=== PATIENT | male | born 1980 | race Caucasian/White ===

== ENCOUNTER 2018-05-01 11:11 | Observation (INO) ==
--- NOTE | 2018-04-30 12:52 | EKG Report ---
Test Performed on : 04/30/2018 12:39:25 PM Test Reason : pat Blood Pressure : / mmHG Vent. Rate : 068 BPM Atrial Rate : 068 BPM P-R Int : 134 ms QRS Dur : 098 ms QT Int : 376 ms P-R-T Axes : 054 111 028 degrees QTc Int : 399 ms Normal sinus rhythm. Left posterior fascicular block Cannot rule out Anterior infarct , age undetermined Abnormal ECG No previous ECGs available Confirmed by Jennifer BRAVO, Hardeep Garvin ([id number]) on 04/30/2018 6:29:45 PM
[2018-04-30 13:48] LABS: HEMATOCRIT 47.9 % (42.0-52.0); HEMOGLOBIN 15.9 g/dL (14.0-18.0); MCH 27.5 PG (27-31); MCHC 33.2 g/dL (33-37); MCV 82.9 FL (81-99); MPV 10.2 FL (7.4-10.4); RBC 5.78 XMIL (4.7-6.1); RDW 13.4 % (11.5-14.5); WBC 6.55 X1000 (4.8-10.8)
[2018-04-30 14:10] LABS: AGAP 11; BUN 9 mg/dL (8-22); CALCIUM 9.9 mg/dL (8.8-10.2); CHLORIDE 99 mmol/L (98-107); COSMO 281; CREATININE 0.9 mg/dL (0.7-1.2); ESTIMATED GFR > 60; GLUCOSE 80 mg/dL (70-104); POTASSIUM 4.1 mmol/L (3.5-5.1); SODIUM 142 mmol/L (136-145); TCO2 32 mmol/L (25-35)
[2018-05-01] MEDS ORDERED: XYLOCAINE-MPF 2% ONE (11:16)
[2018-05-01] MEDS ORDERED: DIPRIVAN 1% ONE (11:16)
[2018-05-01] MEDS ORDERED: NORCURON ONE (11:17)
[2018-05-01] MEDS ORDERED: SODIUM CHLORIDE 0.9% 10 ML ONE (11:17)
[2018-05-01] MEDS ORDERED: QUELICIN (DOSE) ONE (11:17)
[2018-05-01] MEDS ORDERED: PEPCID ONE (11:49)
[2018-05-01] MEDS ORDERED: REGLAN ONE (11:50)
[2018-05-01] MEDS ORDERED: LR 1,000 ML ONE ×2 (11:50→15:30)
[2018-05-01] MEDS ORDERED: FENTANYL ONE (12:35)
[2018-05-01] MEDS ORDERED: VERSED ONE (12:39)
[2018-05-01] MEDS ORDERED: XYLOCAINE 1%/EPI 1:100,000 ONE (12:42)
[2018-05-01] MEDS ORDERED: AFRIN NASAL SPRAY ONE (12:43)
[2018-05-01] MEDS ORDERED: NEO-SYNEPHRINE 1% NASAL SPRAY ONE (12:43)
[2018-05-01] MEDS ORDERED: ZOFRAN ONE (13:18)
[2018-05-01] MEDS ORDERED: DECADRON ONE (13:18)
[2018-05-01] MEDS ORDERED: OFIRMEV 1000 MG/ISOTONIC SOLN 1,000 MG/100 ML BOTTLE ONE (14:04)
[2018-05-01] MEDS ORDERED: DEMEROL ONE ×2 (14:45→14:50)
[2018-05-01] MEDS: DILAUDID ONE ×8 (15:02→17:10)
[2018-05-01] MEDS ORDERED: ROCEPHIN 1 GM in NS 50 ML IV ONE (15:15)
--- NOTE | 2018-05-01 16:13 | OPERATIVE NOTE ---
PROCEDURE DATE: 05/01/2018 PREOPERATIVE DIAGNOSIS: Nasal septal deviation, tonsillar hypertrophy. POSTOPERATIVE DIAGNOSIS: Nasal septal deviation, tonsillar hypertrophy. PROCEDURE: Nasal septoplasty, tonsillectomy. ANESTHESIA: General. SURGEON: Rinku Contreras MD. Risks, benefits and alternatives to surgery discussed with the patient prior to signing OP permit. OPERATION: The patient was taken to the operating room and placed in the supine position. General orotracheal anesthesia induced without difficulty and the usual nose prep and drape applied. Xylocaine 1% with 1:100,000 epinephrine injected mucoperichondrium, mucoperiosteum and septum bilaterally. With a scalpel, I made a hemitransfixion incision on the left and carried it sharply down to the caudal end of the septum. With a [place], I elevated mucoperichondrium and mucoperiosteum off the left side of the cartilaginous and bony septum. We the bony cartilaginous junction and elevated mucoperiosteum off the right side of the bony septum. With heavy scissors, I made 3 parallel cuts parallel to the floor of the nose and removed the deviated portion of the bony septum. Coming anteriorly, we scored the cartilage, leaving a generous 2 cm dorsal and 2 cm caudal strut, and removed the subluxed portion of the cartilaginous septum. This markedly opened the nasal airway. We closed our hemitransfixion incision with four interrupted 5- 0 chromic sutures and closed our flaps with running vertical mattress 4-0 plain on a short Carlos needle. Next, a Laura-Santy mouth gag was inserted and opened, and suspended from the [place] stand. The right tonsil was grasped with a straight Allis and retracted medially, and the cautery used to excise tonsil and underlying fossa. Next, the left tonsil was grasped with a straight Allis and the cautery used to excise tonsil and underlying fossa. Again, hemostasis was excellent. Both fossas irrigated with saline with no further bleeding. Mouth gag released for 1 minute and reopened. No further bleeding at this point. Patient was awakened and sent to the recovery room in good condition. cc: Rinku Contreras MD
[2018-05-01] MEDS: DECADRON IV SCH (21:10)
[2018-05-01] MEDS: HYDROCODONE/APAP 7.5-325/15 ML PO PRN (21:10)
[2018-05-02] MEDS: HYDROCODONE/APAP 7.5-325/15 ML PO PRN ×2 (00:52→06:23)
[2018-05-02] MEDS: LR 1,000 ML IV SCH ×2 (00:58→06:46)
[2018-05-02 04:07] VITALS: BP 126/80
[2018-05-02] MEDS: DECADRON IV SCH (06:23)
== END 2018-05-02 08:56 | disposition home or self-care (01) ==
LOC: OR 11:11 → SURHOLD 11:11 → 4N 17:26
PROVIDERS: ADMIT Otolaryngology; ATTEND Otolaryngology
CPT/HCPCS: 80048; 85027; 88304; 93005; 93010; 94761; 94762; A9270; J0131; J0330; J0696; J1100; J1170; J2175; J2250; J2405; J3010; J7120